=== PATIENT | male | born 1955 | race Caucasian/White ===

== ENCOUNTER 2019-11-21 07:02 | Inpatient (IN) | payer MEDICARE, OTHER ==
[2019-11-21] MEDS ORDERED: Diltiazem 50 MG/10 ML SDV IVPUSH ONE (07:31)
[2019-11-21] MEDS ORDERED: Furosemide 40 MG/4 ML VIAL IVPUSH ONE (07:31)
--- NOTE | 2019-11-21 07:35 | EDM.PDOC ---
ED HPI GENERAL MEDICAL PROBLEM - General Chief Complaint: Respiratory Problem Stated Complaint: [facility] Time Seen by Provider: 11/21/19 07:20 Source of Information: Reports: Patient, EMS, Family History Limitations: Reports: Respiratory Distress - History of Present Illness INITIAL COMMENTS - FREE TEXT/NARRATIVE: 64-year-old male presents to the ED per [facility]. Patient states that he has felt fluttering in his chest off and on since yesterday around noon. This caused shortness of breath but no dizziness lightheadedness or weakness in his extremities. No central chest pain. He states this seemed to go away last evening but awoke this morning shortness of breath and feeling of palpitations. No history of atrial fibrillation. Triage nurse has performed an ECG which shows atrial fibrillation with rapid ventricular response up to 150/min. Patient has a dry cough not able to expectorate anything. He has a history of diabetes and hypertension. He is morbidly obese. Apparently on echo cardiogram showed that he had a leaky valve according to his . Onset: Sudden Onset Date: 11/20/19 Duration: Day(s):, Getting Worse, Waxing/Waning Location: Reports: Chest (During in his chest.) Quality: Reports: Other (Shortness of breath.) Severity: Mild Improves with: Reports: None Worsens with: Reports: None Context: Reports: Other (Spontaneous onset). Denies: Activity, Exercise, Lifting, Sick Contact, Trauma Associated Symptoms: Reports: Cough, Malaise, Shortness of Breath. 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 (see below) (He has not taken his usual meds yet today which include includes metoprolol 50 mg extended release with which he takes 3 pills at once.) Sacral Pain Score (Numeric/FACES): 9 - Related Data Allergies Allergy/AdvReac Type Severity Reaction Status Date / Time sulfamethoxazole Allergy Hives Verified 11/21/19 07:30 [From ] trimethoprim [From ] Allergy Hives Verified 11/21/19 07:30 Home Meds: Home Meds Aspirin [Lo-Dose Aspirin EC] 81 mg PO DAILY 07/24/16 [History] Hydrochlorothiazide 25 mg PO DAILY 07/24/16 [History] Lisinopril 20 mg PO BID 07/24/16 [History] Metoprolol Succinate [Toprol XL 100mg] 150 mg PO DAILY 07/24/16 [History] Oxybutynin 5 mg PO DAILY PRN 11/21/19 [History] Pantoprazole [ProTONIX] 40 mg PO DAILY 11/21/19 [History] Potassium Chloride 30 meq PO DAILY 11/21/19 [History] amLODIPine Besylate [Amlodipine Besylate] 10 mg PO DAILY 11/21/19 [History] metFORMIN [Glucophage] 500 mg PO TID 11/21/19 [History] Past Medical History HEENT History: Reports: Epistaxis Cardiovascular History: Reports: Hypertension Musculoskeletal History: Reports: Back Pain, Chronic - Past Surgical History Male Surgical History: Reports: Other (See Below) (And 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 Denies: Fever, Chills, Weight Loss HEENT: Reports: No Symptoms Respiratory: Reports: Shortness of Breath, Cough (Nonproductive). Denies: Wheezing, Pleuritic Chest Pain Cardiovascular: Reports: Blood Pressure Problem, Palpitations. Denies: Chest Pain, Claudication, Edema, Lightheadedness, Orthopnea Endocrine: Reports: Fatigue, High Glucose, Polydypsia, Polyuria GI/Abdominal: Denies: Abdominal Pain, Anorexia, Black Stool, Bloody Stool, Constipation, Diarrhea, Decreased Appetite, Difficulty Swallowing, Distension, Flatus, Hematemesis, Hematochezia : Reports: Frequency, Other (Nocturia x2 or 3.) Musculoskeletal: Reports: Back Pain, Other (Occultly walking.) Skin: Reports: Other (Chronic redness erythema both lower extremities due to venous stasis and chronic edema lower extremities) Neurological: Reports: Difficulty Walking. Denies: Confusion, Dizziness, Headache, Numbness, Paresthesia, Pre-Existing Deficit, Seizure, Syncope, Tingling, Tremors, Trouble Speaking (Likely), Weakness Psychiatric: Reports: No Symptoms Hematologic/Lymphatic: Reports: No Symptoms Immunologic: Reports: No Symptoms ED EXAM, GENERAL - Physical Exam Exam: See Below Exam Limited By: No Limitations General Appearance: Alert, WD/WN, Mild Distress, Other (Temperature is 37.2 pulse is 94 and sinus respiratory it is 32 O2 sats 88% on room air BP 163/80. Patient placed on oxygen at 4 L/min by nasal cannula to achieve O2 sats of 93%) Eye Exam: Bilateral Eye: Normal Inspection, PERRL Throat/Mouth: Other (Tongue is dry and coated.) Head: Atraumatic, Normocephalic Neck: Normal Inspection, Supple, Non-Tender, Full Range of Motion. No: Carotid Bruit, Lymphadenopathy (L), Lymphadenopathy (R), Thyromegaly Respiratory/Chest: No Accessory Muscle Use, Respiratory Distress (Marked tachypnea.), Rales (Left lower lobes.), Wheezing (Occasional expiratory wheeze.). No: Lungs Clear, Normal Breath Sounds Cardiovascular: Regular Rate, Rhythm, No Gallop, No Murmur, No Rub, Other (Ball neck does not allow me to appreciate JVD.). 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 Extensive scarring in the groin.) Back Exam: Normal Inspection, Full Range of Motion. No: CVA Tenderness (L), CVA Tenderness (R) Extremities: Pedal Edema (3+ pitting edema both lower extremities), Other (. Stasis dermatitis both lower extremities. Some scabbing appreciated over the left lower anterior baires. Bilateral mild erythema both lower anterior shins. Not warm to palpation.) Neurological: Alert, Oriented, CN II-XII Intact, Normal Cognition Psychiatric: Normal Affect, Normal Mood Skin Exam: Warm, Dry, Intact, Normal Color, Erythema (No erythema both lower anterior shins.). No: Increased Warmth EKG INTERPRETATION EKG Date: 11/21/19 Time: 07:16 Rhythm: A-Fib (With rate 70 to 150/min.) Rate (Beats/Min): 95 [place]: Normal P-Wave: Absent QRS: Other (They have V2 suggestive of possible old anteroseptal myocardial infarction.) ST-T: Other (During baseline in the precordial leads. Suggests mild ST segment elevation in leads II 3 and possibly in aVF. This could be due to early repolarization pattern due to rate.) QT: Normal EKG Interpretation Comments: Abnormal ECG Course - Vital Signs Last Recorded V/S: Last Vital Signs Temp 36.7 C 11/21/19 17:00 Pulse 74 11/21/19 10:10 Resp 16 11/21/19 18:00 BP 151/89 H 11/21/19 18:00 Pulse Ox 94 L 11/21/19 18:00 - Orders/Labs/Meds Orders: Medication Orders Acetaminophen (Tylenol) 650 mg PO Q4H PRN PRN Reason: Pain (Mild 1-3)/fever Hydrocodone Bitart/Acetaminophen (Beatty 325-5 Mg) 2 tab PO Q4H PRN PRN Reason: Pain (moderate 4-6) Last Admin: 11/21/19 12:05 Dose: 2 tab Documented by: TUYET Apixaban (Eliquis) 5 mg PO BID [facility] Last Admin: 11/21/19 12:05 Dose: 5 mg Documented by: TUYET Digoxin (Lanoxin) 250 mcg PO ONETIME ONE Stop: 11/21/19 21:01 Hydralazine HCl (Apresoline) 25 mg PO Q8H [facility] Last Admin: 11/21/19 14:28 Dose: 25 mg Documented by: TUYET Furosemide 100 mg/ Sodium (Chloride) 100 mls @ 5 mls/hr IV TITRATE [facility]; Protocol Last Admin: 11/21/19 12:05 Dose: 5 mg/hr, 5 mls/hr Documented by: TUYET Insulin Human Lispro (Humalog) 0 unit SUBCUT QIDACANDBED [facility]; Protocol Last Admin: 11/21/19 18:07 Dose: Not Given Documented by: TUYET Isosorbide Dinitrate (Isordil) 20 mg PO Q8H [facility] Last Admin: 11/21/19 14:29 Dose: 20 mg Documented by: TUYET Pantoprazole Sodium (Protonix) 40 mg PO DAILY [facility] Spironolactone (Aldactone) 25 mg PO DAILY [facility] Last Admin: 11/21/19 14:29 Dose: 25 mg Documented by: TUYET Labs: Laboratory Tests 11/21/19 11/21/19 11/21/19 Range/Units 07:15 07:15 07:15 WBC 14.31 H (4.23-9.07) K/mm3 RBC 4.48 L (4.63-6.08) M/mm3 Hgb 12.9 L D (13.7-17.5) gm/dl Hct 38.8 L (40.1-51.0) % MCV 86.6 D (79.0-92.2) fl MCH 28.8 (25.7-32.2) pg MCHC 33.2 (32.2-35.5) g/dl RDW Std Deviation 50.7 H (35.1-43.9) fL Plt Count 292 (163-337) K/mm3 MPV 10.6 (9.4-12.3) fl Neut % (Auto) 82.0 H (34.0-67.9) % Lymph % (Auto) 8.1 L (21.8-53.1) % [place] % (Auto) 8.5 (5.3-12.2) % Eos % (Auto) 0.8 (0.8-7.0) Baso % (Auto) 0.3 (0.1-1.2) % Neut # (Auto) 11.75 H (1.78-5.38) K/mm3 Lymph # (Auto) 1.16 L (1.32-3.57) K/mm3 [place] # (Auto) 1.21 H (0.30-0.82) K/mm3 Eos # (Auto) 0.11 (0.04-0.54) K/mm3 Baso # (Auto) 0.04 (0.01-0.08) K/mm3 Manual Slide Review Abnormal smear PT 11.6 (9.7-12.0) SECONDS INR 1.07 APTT 31 (22-31) SECONDS Sodium 139 D (136-145) mEq/L Potassium 4.6 (3.5-5.1) mEq/L Chloride 103 D (98-107) mEq/L Carbon Dioxide 25 (21-32) mEq/L Anion Gap 15.6 H (5-15) BUN 43 H (7-18) mg/dL Creatinine 1.8 H (0.7-1.3) mg/dL Est Cr Clr Drug Dosing 48.84 mL/min Estimated GFR (MDRD) 38 (>60) mL/min BUN/Creatinine Ratio 23.9 H (14-18) Glucose 160 H (80-115) mg/dL Hemoglobin A1c (4.50-6.20) % Calcium 9.1 (8.5-10.1) mg/dL Magnesium 1.6 L (1.8-2.4) mg/dl Total Bilirubin 1.5 H (0.2-1.0) mg/dL AST 14 L (15-37) U/L ALT 21 (16-63) U/L Alkaline Phosphatase 65 (46-116) U/L CK-MB (CK-2) 1.7 (0-3.6) ng/ml Troponin I < 0.017 (0.00-0.056) ng/mL C-Reactive Protein 15.8 H* (<1.0) mg/dL NT-Pro-B Natriuret Pep (0-125) pg/mL Total Protein 7.9 (6.4-8.2) g/dl Albumin 3.7 (3.4-5.0) g/dl Globulin 4.2 gm/dL Albumin/Globulin Ratio 0.9 L (1-2) 11/21/19 11/21/19 Range/Units 07:15 07:15 WBC (4.23-9.07) K/mm3 RBC (4.63-6.08) M/mm3 Hgb (13.7-17.5) gm/dl Hct (40.1-51.0) % MCV (79.0-92.2) fl MCH (25.7-32.2) pg MCHC (32.2-35.5) g/dl RDW Std Deviation (35.1-43.9) fL Plt Count (163-337) K/mm3 MPV (9.4-12.3) fl Neut % (Auto) (34.0-67.9) % Lymph % (Auto) (21.8-53.1) % [place] % (Auto) (5.3-12.2) % Eos % (Auto) (0.8-7.0) Baso % (Auto) (0.1-1.2) % Neut # (Auto) (1.78-5.38) K/mm3 Lymph # (Auto) (1.32-3.57) K/mm3 [place] # (Auto) (0.30-0.82) K/mm3 Eos # (Auto) (0.04-0.54) K/mm3 Baso # (Auto) (0.01-0.08) K/mm3 Manual Slide Review PT (9.7-12.0) SECONDS INR APTT (22-31) SECONDS Sodium (136-145) mEq/L Potassium (3.5-5.1) mEq/L Chloride (98-107) mEq/L Carbon Dioxide (21-32) mEq/L Anion Gap (5-15) BUN (7-18) mg/dL Creatinine (0.7-1.3) mg/dL Est Cr Clr Drug Dosing mL/min Estimated GFR (MDRD) (>60) mL/min BUN/Creatinine Ratio (14-18) Glucose (80-115) mg/dL Hemoglobin A1c 6.40 H (4.50-6.20) % Calcium (8.5-10.1) mg/dL Magnesium (1.8-2.4) mg/dl Total Bilirubin (0.2-1.0) mg/dL AST (15-37) U/L ALT (16-63) U/L Alkaline Phosphatase (46-116) U/L CK-MB (CK-2) (0-3.6) ng/ml Troponin I (0.00-0.056) ng/mL C-Reactive Protein (<1.0) mg/dL NT-Pro-B Natriuret Pep 6123 H (0-125) pg/mL Total Protein (6.4-8.2) g/dl Albumin (3.4-5.0) g/dl Globulin gm/dL Albumin/Globulin Ratio (1-2) Meds: Medications Generic Name Dose Route Start Last Admin Trade Name Josiahq PRN Reason Stop Dose Admin Acetaminophen 650 mg 11/21/19 11:07 Tylenol PO Q4H PRN Pain (Mild 1-3)/fever Hydrocodone Bitart/Acetaminophen 2 tab 11/21/19 11:07 11/21/19 12:05 Beatty 325-5 Mg PO 2 tab Q4H PRN Administration Pain (moderate 4-6) Apixaban 5 mg 11/21/19 11:30 11/21/19 12:05 Eliquis PO 5 mg BID SERVANDO Administration Digoxin 250 mcg 11/21/19 21:00 Lanoxin PO 11/21/19 21:01 ONETIME ONE Hydralazine HCl 25 mg 11/21/19 13:15 11/21/19 14:28 Apresoline PO 25 mg Q8H SERVANDO Administration Furosemide 100 mg/ Sodium 100 mls @ 5 mls/hr 11/21/19 11:30 11/21/19 12:05 Chloride IV 5 mg/hr TITRATE SERVANDO 5 mls/hr Administration Protocol 5 MG/HR Insulin Human Lispro 0 unit 11/21/19 17:00 11/21/19 18:07 Humalog SUBCUT Not Given QIDACANDBED SERVANDO Protocol Isosorbide Dinitrate 20 mg 11/21/19 13:15 11/21/19 14:29 Isordil PO 20 mg Q8H SERVANDO Administration Pantoprazole Sodium 40 mg 11/22/19 09:00 Protonix PO DAILY SERVANDO Spironolactone 25 mg 11/21/19 13:00 11/21/19 14:29 Aldactone PO 25 mg DAILY SERVANDO Administration Discontinued Medications Generic Name Dose Route Start Last Admin Trade Name Josiahq PRN Reason Stop Dose Admin Diltiazem HCl 10 mg 11/21/19 07:31 11/21/19 07:54 Cardizem IVPUSH 11/21/19 07:32 10 mg ONETIME ONE Administration Furosemide 40 mg 11/21/19 07:31 11/21/19 07:52 Lasix IVPUSH 11/21/19 07:32 40 mg NOW ONE Administration Diltiazem HCl 100 mg/ Sodium 100 mls @ 10 mls/hr 11/21/19 07:45 11/21/19 17:01 Chloride IV 0 mg/hr TITRATE SERVANDO 0 mls/hr Titration Protocol 10 MG/HR Magnesium Sulfate 4 gm/ Premix 50 mls @ 12.5 mls/hr 11/21/19 12:05 11/21/19 12:43 IV 11/21/19 16:04 12.5 mls/hr ONETIME ONE Administration Lisinopril 20 mg 11/21/19 21:00 Prinivil PO BID SERVANDO Oxybutynin Chloride 5 mg 11/21/19 11:10 Oxybutynin PO DAILY PRN Dysuria Potassium Chloride 30 meq 11/22/19 09:00 Klor-Con 10 PO DAILY [facility] - Radiology Interpretation Free Text/Narrative:: 64-year-old male presents to the ED shortness of breath gradually worsening since yesterday. He is aware of palpitations in his chest. ECG shows atrial fibrillation which apparently is new onset for this patient with rapid ventricular rate up to 150/min. Clinically he is tachypneic and hypoxic with O2 sats of 88% on room air. Requiring 4 L of oxygen per nasal cannula at this nettie e. Exam reveals crackles in both bases combined with congestive failure probably secondary to atrial fibrillation of unknown duration. Patient is on metoprolol 50 mg extended release which she takes 3 tablets at once once daily. This is for hypertension. To the patient's knowledge and his 's knowledge he is never had atrial fibrillation before. He is morbidly obese ,known to be diabetic. Plan saline lock. Cardizem 10 mg IV bolus then started on a Cardizem drip at 10 mg/h. Lasix 40 mg IV. Routine labs including cardiac markers glycosylated protein and 2 view chest x-ray. - Re-Assessments/Exams Free Text/Narrative Re-Assessment/Exam: 11/21/19 08:38 patient remains in atrial fibrillation primarily in the 80s. BP is 149/86. O2 sats 94% on 4 L. View chest x-ray reveals cardiomegaly diffuse vascular congestion with fluid in the azygous fissure. 11/21/19 08:41 White count is elevated at 14.31 with 82% neutrophils on the auto differential. Manual slide review is pending. Hemoglobin is 12.9 with hematocrit of 38.8. Platelet count 292,000. Sodium 139 with a potassium of 4.6. Chloride 103 with bicarb of 25. Anion gap is 15.6 mildly elevated. BUN is elevated at 43 with a creatinine of 1.8. GFR is 38 stage III renal insufficiency. Glucose is 160 known diabetic. Hemoglobin A1c is 6.4. Calcium is 9.1 with magnesium of 1.6 slightly low. Bilirubin elevated at 1.5. AST is 14 with an ALT of 21. Alkaline phosphatase of 65. CK-MB fraction is 1.7 troponin I is less than 0.017. C-reactive protein is 15.8. BNP is 6123 .Total protein 7.9 albumin 3.7. Plan: the patient will be admitted to the intensive care unit.. He has significant congestive heart failure precipitated by atrial fibrillation of new onset but we are not exactly sure when it started. He requires oxygen at 4 L/min at present due to congestive failure. Atrial fibrillation to be controlled at present with Cardizem drip at 10 mg/h. Case discussed with on-call hospitalist Dr. Carroll. 11/21/19 08:49 I have spoken with Dr. Carroll and the patient will be admitted to the ICU. Dr. Carroll requested a lactic acid and I agree as he has an elevated white count and an elevated CRP suggesting an underlying bacterial infection. He is afebrile at present. Departure - Departure Time of Disposition: 10:00 Disposition: Admitted As Inpatient 67 Condition: Fair Clinical Impression: Atrial fibrillation with rapid ventricular response Congestive heart failure Qualifiers: Heart failure type: unspecified Heart failure chronicity: acute on chronic Qualified Code(s): I50.9 - Heart failure, unspecified - Discharge Information *PRESCRIPTION DRUG MONITORING PROGRAM REVIEWED*: Not Applicable *COPY OF PRESCRIPTION DRUG MONITORING REPORT IN PATIENT HEATHER: Not Applicable Sepsis Event Note (ED) - Evaluation Sepsis Screening Result: No Definite Risk
[2019-11-21] MEDS ORDERED: Diltiazem 100 MG in Sodium Chloride 0.9% 100 ML IV SCH (07:45)
[2019-11-21 08:30] LABS: HEMOGLOBIN A1C 6.4 % (4.50-6.20)
--- NOTE | 2019-11-21 08:37 | CR ---
Chest: 2 views of the chest were obtained. Comparison: Prior chest x-ray of 07/24/16. Heart is enlarged. Pulmonary vessels are congested. No acute bony abnormality is seen. Impression: 1. Findings suspicious for mild CHF. Diagnostic code #3 Study was dictated in MDT
[2019-11-21] MEDS ORDERED: Acetaminophen 325 MG Tab PO PRN (11:07)
[2019-11-21] MEDS ORDERED: Oxybutynin 5 MG Tab PO PRN (11:10)
--- NOTE | 2019-11-21 11:17 | PCM.HP.2 ---
H&P History of Present Illness - General Date of Service: 11/21/19 Admit Problem/Dx: Admission Diagnosis/Problem Admission Diagnosis/Problem Atrial fibrillation with rapid ventricular response - History of Present Illness Initial Comments - Free Text/Narative: 64-year-old male with history of hypertension and type 2 diabetes presents to the emergency room with worsening shortness of breath. Patient states that he started developing shortness of breath yesterday morning and it worsened throughout the day. Last night he had orthopnea but denies PND. Lower extremity edema has been present for approximately 3 years but it was worse over the last 3 to 4 weeks. Denies any fever or chills. Denies any chest pain. Patient does state he has had some feeling of palpitations in his chest since yesterday., Or neurologic deficiencies. He is on lisinopril, metoprolol, hydrochlorothiazide, and Norvasc for his hypertension. Patient had an echocardiogram over a year ago which showed a leaky valve. In the emergency department initial blood pressure was elevated 163/80 and heart rate ranged from 80-150 and was irregular. EKG showed A. fib with a ventricular rate between 70-150. Some early repolarization in leads II, III, and aVF. Patient was given Cardizem 10 mg IV bolus and placed on a Cardizem drip. Patient was also given Lasix 40 mg IV push with good results. Heart rate stabilized in the 80s and he was transferred to the unit. He did require 4 L to get his oxygen saturations to 94%. On presentation they were 88%. Admitting labs showed an elevated white count of 14.31 with 11.75 neutrophils without bands, hemoglobin 12.9, platelet count 292, sodium 139, potassium 4.6, anion gap of 25.6, bicarb 25, BUN 43, creatinine 1.8, estimated GFR of 38, glucose 160. C-reactive protein of 15.8. Troponin less than 0.017. Mildly elevated total bilirubin of 1.5. proBNP was 6123. Hemoglobin A1c was 6.4. Sacral Pain Score (Numeric/FACES): 9 - Related Data Allergies/Adverse Reactions: Allergies Allergy/AdvReac Type Severity Reaction Status Date / Time sulfamethoxazole Allergy Hives Verified 11/21/19 07:30 [From ] trimethoprim [From ] Allergy Hives Verified 11/21/19 07:30 Home Medications: Home Meds Aspirin [Lo-Dose Aspirin EC] 81 mg PO DAILY 07/24/16 [History] Hydrochlorothiazide 25 mg PO DAILY 07/24/16 [History] Lisinopril 20 mg PO BID 07/24/16 [History] Metoprolol Succinate [Toprol XL 100mg] 150 mg PO DAILY 07/24/16 [History] Oxybutynin 5 mg PO DAILY PRN 11/21/19 [History] Pantoprazole [ProTONIX] 40 mg PO DAILY 11/21/19 [History] Potassium Chloride 30 meq PO DAILY 11/21/19 [History] amLODIPine Besylate [Amlodipine Besylate] 10 mg PO DAILY 11/21/19 [History] metFORMIN [Glucophage] 500 mg PO TID 11/21/19 [History] Past Medical History HEENT History: Reports: Epistaxis Other HEENT History: wears eyeglasses. 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 He still has chronic pain in his tailbone area.) Social & Family History - Tobacco Use Smoking Status *Q: Never Smoker Second Hand Smoke Exposure: No - Caffeine Use Caffeine Use: Reports: Coffee - Recreational Drug Use Recreational Drug Use: No - Living Situation & Occupation Living situation: Reports: Occupation: Disabled H&P Review of Systems - Review of Systems: Review Of Systems: Comprehensive ROS is negative, except as noted in HPI. Exam - Exam Exam: See Below - Vital Signs Vital Signs: Last Vital Signs Temp 98 F 11/21/19 10:29 Pulse 74 11/21/19 10:10 Resp 16 11/21/19 10:29 BP 152/87 H 11/21/19 10:29 Pulse Ox 94 L 11/21/19 11:07 Weight: 159.755 kg - Exam Quality Assessment: Supplemental Oxygen General: Alert, Oriented, 4 HEENT: Conjunctiva Clear, Hearing Intact, Mucosa Moist & [place] Neck: Supple, Trachea Midline, 2 Lungs: Normal Respiratory Effort, Crackles (Bilateral basis) Cardiovascular: Irregular Rhythm (And rate) GI/Abdominal Exam: Normal Bowel Sounds, Soft, Non-Tender, No Organomegaly, No Distention, No Abnormal Bruit Back Exam: Normal Inspection Extremities: Normal Inspection, Normal Range of Motion, Non-Tender, No Pedal Edema, Normal Capillary Refill Peripheral Pulses: 1+: Posterior Tibial (L), Posterior Tibial (R), Dorsalis Pedis (L), Dorsalis Pedis (R) Skin: Warm, Dry, Intact Neuro Extensive - Mental Status: Alert, Oriented x3, Normal Mood/Affect, Normal Cognition, Memory Intact Neuro Extensive - Motor, Sensory, Reflexes: CN II-XII Intact Psychiatric: Alert, Normal Affect, Normal Mood - Patient Data Lab Results Last 24 hrs: Laboratory Results - last 24 hr 11/21/19 11/21/19 11/21/19 Range/Units 07:15 07:15 07:15 WBC 14.31 H (4.23-9.07) K/mm3 RBC 4.48 L (4.63-6.08) M/mm3 Hgb 12.9 L D (13.7-17.5) gm/dl Hct 38.8 L (40.1-51.0) % MCV 86.6 D (79.0-92.2) fl MCH 28.8 (25.7-32.2) pg MCHC 33.2 (32.2-35.5) g/dl RDW Std Deviation 50.7 H (35.1-43.9) fL Plt Count 292 (163-337) K/mm3 MPV 10.6 (9.4-12.3) fl Neut % (Auto) 82.0 H (34.0-67.9) % Lymph % (Auto) 8.1 L (21.8-53.1) % [place] % (Auto) 8.5 (5.3-12.2) % Eos % (Auto) 0.8 (0.8-7.0) Baso % (Auto) 0.3 (0.1-1.2) % Neut # (Auto) 11.75 H (1.78-5.38) K/mm3 Lymph # (Auto) 1.16 L (1.32-3.57) K/mm3 [place] # (Auto) 1.21 H (0.30-0.82) K/mm3 Eos # (Auto) 0.11 (0.04-0.54) K/mm3 Baso # (Auto) 0.04 (0.01-0.08) K/mm3 Manual Slide Review Abnormal smear PT 11.6 (9.7-12.0) SECONDS INR 1.07 APTT 31 (22-31) SECONDS Sodium 139 D (136-145) mEq/L Potassium 4.6 (3.5-5.1) mEq/L Chloride 103 D (98-107) mEq/L Carbon Dioxide 25 (21-32) mEq/L Anion Gap 15.6 H (5-15) BUN 43 H (7-18) mg/dL Creatinine 1.8 H (0.7-1.3) mg/dL Est Cr Clr Drug Dosing 48.84 mL/min Estimated GFR (MDRD) 38 (>60) mL/min BUN/Creatinine Ratio 23.9 H (14-18) Glucose 160 H (80-115) mg/dL Hemoglobin A1c (4.50-6.20) % Lactic Acid (0.4-2.0) mmol/L Calcium 9.1 (8.5-10.1) mg/dL Magnesium 1.6 L (1.8-2.4) mg/dl Total Bilirubin 1.5 H (0.2-1.0) mg/dL AST 14 L (15-37) U/L ALT 21 (16-63) U/L Alkaline Phosphatase 65 (46-116) U/L CK-MB (CK-2) 1.7 (0-3.6) ng/ml Troponin I < 0.017 (0.00-0.056) ng/mL C-Reactive Protein 15.8 H* (<1.0) mg/dL NT-Pro-B Natriuret Pep (0-125) pg/mL Total Protein 7.9 (6.4-8.2) g/dl Albumin 3.7 (3.4-5.0) g/dl Globulin 4.2 gm/dL Albumin/Globulin Ratio 0.9 L (1-2) Urine Color (Yellow) Urine Appearance (Clear) Urine pH (5.0-8.0) Ur Specific [place] (1.005-1.030) Urine Protein (Negative) Urine Glucose (UA) (Negative) Urine Ketones (Negative) Urine Occult Blood (Negative) Urine Nitrite (Negative) Urine Bilirubin (Negative) Urine Urobilinogen (0.2-1.0) Ur Leukocyte Esterase (Negative) Urine RBC (0-5) /hpf Urine WBC (0-5) /hpf Ur Epithelial Cells (0-5) /hpf Urine Bacteria (FEW) /hpf Urine Mucus (FEW) /hpf 11/21/19 11/21/19 11/21/19 Range/Units 07:15 07:15 09:10 WBC (4.23-9.07) K/mm3 RBC (4.63-6.08) M/mm3 Hgb (13.7-17.5) gm/dl Hct (40.1-51.0) % MCV (79.0-92.2) fl MCH (25.7-32.2) pg MCHC (32.2-35.5) g/dl RDW Std Deviation (35.1-43.9) fL Plt Count (163-337) K/mm3 MPV (9.4-12.3) fl Neut % (Auto) (34.0-67.9) % Lymph % (Auto) (21.8-53.1) % [place] % (Auto) (5.3-12.2) % Eos % (Auto) (0.8-7.0) Baso % (Auto) (0.1-1.2) % Neut # (Auto) (1.78-5.38) K/mm3 Lymph # (Auto) (1.32-3.57) K/mm3 [place] # (Auto) (0.30-0.82) K/mm3 Eos # (Auto) (0.04-0.54) K/mm3 Baso # (Auto) (0.01-0.08) K/mm3 Manual Slide Review PT (9.7-12.0) SECONDS INR APTT (22-31) SECONDS Sodium (136-145) mEq/L Potassium (3.5-5.1) mEq/L Chloride (98-107) mEq/L Carbon Dioxide (21-32) mEq/L Anion Gap (5-15) BUN (7-18) mg/dL Creatinine (0.7-1.3) mg/dL Est Cr Clr Drug Dosing mL/min Estimated GFR (MDRD) (>60) mL/min BUN/Creatinine Ratio (14-18) Glucose (80-115) mg/dL Hemoglobin A1c 6.40 H (4.50-6.20) % Lactic Acid (0.4-2.0) mmol/L Calcium (8.5-10.1) mg/dL Magnesium (1.8-2.4) mg/dl Total Bilirubin (0.2-1.0) mg/dL AST (15-37) U/L ALT (16-63) U/L Alkaline Phosphatase (46-116) U/L CK-MB (CK-2) (0-3.6) ng/ml Troponin I (0.00-0.056) ng/mL C-Reactive Protein (<1.0) mg/dL NT-Pro-B Natriuret Pep 6123 H (0-125) pg/mL Total Protein (6.4-8.2) g/dl Albumin (3.4-5.0) g/dl Globulin gm/dL Albumin/Globulin Ratio (1-2) Urine Color Yellow (Yellow) Urine Appearance Clear (Clear) Urine pH 5.5 (5.0-8.0) Ur Specific [place] 1.020 (1.005-1.030) Urine Protein 2+ H (Negative) Urine Glucose (UA) Negative (Negative) Urine Ketones Negative (Negative) Urine Occult Blood Trace-lysed H (Negative) Urine Nitrite Negative (Negative) Urine Bilirubin Negative (Negative) Urine Urobilinogen 0.2 (0.2-1.0) Ur Leukocyte Esterase Negative (Negative) Urine RBC Not seen (0-5) /hpf Urine WBC 0-5 (0-5) /hpf Ur Epithelial Cells Not seen (0-5) /hpf Urine Bacteria Rare (FEW) /hpf Urine Mucus Not seen (FEW) /hpf 11/20/20 Range/Units 09:14 WBC (4.23-9.07) K/mm3 RBC (4.63-6.08) M/mm3 Hgb (13.7-17.5) gm/dl Hct (40.1-51.0) % MCV (79.0-92.2) fl MCH (25.7-32.2) pg MCHC (32.2-35.5) g/dl RDW Std Deviation (35.1-43.9) fL Plt Count (163-337) K/mm3 MPV (9.4-12.3) fl Neut % (Auto) (34.0-67.9) % Lymph % (Auto) (21.8-53.1) % [place] % (Auto) (5.3-12.2) % Eos % (Auto) (0.8-7.0) Baso % (Auto) (0.1-1.2) % Neut # (Auto) (1.78-5.38) K/mm3 Lymph # (Auto) (1.32-3.57) K/mm3 [place] # (Auto) (0.30-0.82) K/mm3 Eos # (Auto) (0.04-0.54) K/mm3 Baso # (Auto) (0.01-0.08) K/mm3 Manual Slide Review PT (9.7-12.0) SECONDS INR APTT (22-31) SECONDS Sodium (136-145) mEq/L Potassium (3.5-5.1) mEq/L Chloride (98-107) mEq/L Carbon Dioxide (21-32) mEq/L Anion Gap (5-15) BUN (7-18) mg/dL Creatinine (0.7-1.3) mg/dL Est Cr Clr Drug Dosing mL/min Estimated GFR (MDRD) (>60) mL/min BUN/Creatinine Ratio (14-18) Glucose (80-115) mg/dL Hemoglobin A1c (4.50-6.20) % Lactic Acid 2.2 H* (0.4-2.0) mmol/L Calcium (8.5-10.1) mg/dL Magnesium (1.8-2.4) mg/dl Total Bilirubin (0.2-1.0) mg/dL AST (15-37) U/L ALT (16-63) U/L Alkaline Phosphatase (46-116) U/L CK-MB (CK-2) (0-3.6) ng/ml Troponin I (0.00-0.056) ng/mL C-Reactive Protein (<1.0) mg/dL NT-Pro-B Natriuret Pep (0-125) pg/mL Total Protein (6.4-8.2) g/dl Albumin (3.4-5.0) g/dl Globulin gm/dL Albumin/Globulin Ratio (1-2) Urine Color (Yellow) Urine Appearance (Clear) Urine pH (5.0-8.0) Ur Specific [place] (1.005-1.030) Urine Protein (Negative) Urine Glucose (UA) (Negative) Urine Ketones (Negative) Urine Occult Blood (Negative) Urine Nitrite (Negative) Urine Bilirubin (Negative) Urine Urobilinogen (0.2-1.0) Ur Leukocyte Esterase (Negative) Urine RBC (0-5) /hpf Urine WBC (0-5) /hpf Ur Epithelial Cells (0-5) /hpf Urine Bacteria (FEW) /hpf Urine Mucus (FEW) /hpf Result Diagrams: 11/21/19 07:15 11/21/19 07:15 EKG INTERPRETATION EKG Date: 11/21/19 Rhythm: A-Fib Rate (Beats/Min): 95 P-Wave: Absent QRS: Normal ST-T: Other (Early repolarization in the inferior leads) QT: Normal Sepsis Event Note - Evaluation Sepsis Screening Result: Severe Sepsis Risk - Focused Exam Vital Signs: Vital Signs Temp Pulse Resp BP Pulse Ox Pulse Ox 11/21/19 11:07 94 L 11/21/19 10:29 98 F 16 152/87 H 95 11/21/19 10:10 98.6 F 74 24 H 130/80 92 L 11/21/19 07:02 98.9 F 94 32 H 163/80 H 88 L Date Exam was Performed: 11/21/19 Time Exam was Performed: 19:35 Problem List Initiated/Reviewed/Updated: Yes Orders Last 24hrs: Active Orders 24 hr Category Date Time Status Admission Status [Patient Status] [ADT] Routine ADT 11/21/19 08:50 Active Blood Glucose Check, Bedside [RC] QIDACANDBED Care 11/21/19 11:13 Ordered Intake and Output Strict [RC] ASDIRECTED Care 11/21/19 11:10 Ordered Oxygen Therapy [RC] PRN Care 11/21/19 11:07 Ordered Up With Assistance [RC] ASDIRECTED Care 11/21/19 11:07 Ordered VTE/DVT Education [RC] PER UNIT ROUTINE Care 11/21/19 11:07 Ordered Vital Signs [RC] ASDIRECTED Care 11/21/19 11:07 Ordered Heart Healthy Diet [DIET] Diet 11/21/19 Lunch Ordered Echo Comp wo Cont [US] Routine Exams 11/21/19 Ordered Acetaminophen [Tylenol] Med 11/21/19 11:07 Ordered 650 mg PO Q4H PRN Acetaminophen/HYDROcodone [[place] 325-5 MG] Med 11/21/19 11:07 Ordered 2 tab PO Q4H PRN Apixaban [Eliquis] Med 11/21/19 11:15 Ordered 5 mg PO BID Diltiazem [Cardizem] 100 mg Med 11/21/19 07:45 Active Sodium Chloride 0.9% [Normal Saline] 100 ml IV TITRATE Insulin Lispro [HumaLOG] Med 11/21/19 17:00 Ordered See Protocol SUBCUT QIDACANDBED Oxybutynin Med 11/21/19 11:10 Ordered 5 mg PO DAILY PRN Pantoprazole [ProTONIX] Med 11/22/19 09:00 Ordered 40 mg PO DAILY Potassium Chloride [Klor-Con 10] Med 11/22/19 09:00 Ordered 30 meq PO DAILY lisinopriL [Prinivil] Med 11/21/19 21:00 Ordered 20 mg PO BID Code Status [Resuscitation Status] Routine Resus Stat 11/21/19 10:37 Ordered Medication Orders Acetaminophen (Tylenol) 650 mg PO Q4H PRN PRN Reason: Pain (Mild 1-3)/fever Hydrocodone Bitart/Acetaminophen ([place] 325-5 Mg) 2 tab PO Q4H PRN PRN Reason: Pain (moderate 4-6) Apixaban (Eliquis) 5 mg PO BID SERVANDO Diltiazem HCl 100 mg/ Sodium (Chloride) 100 mls @ 10 mls/hr IV TITRATE SERVANDO; Protocol Last Admin: 11/21/19 07:58 Dose: 10 mg/hr, 10 mls/hr Documented by: JOSE Insulin Human Lispro (Humalog) 0 unit SUBCUT QIDACANDBED SERVANDO; Protocol Lisinopril (Prinivil) 20 mg PO BID [facility] Oxybutynin Chloride (Oxybutynin) 5 mg PO DAILY PRN PRN Reason: Dysuria Pantoprazole Sodium (Protonix) 40 mg PO DAILY [facility] Potassium Chloride (Klor-Con 10) 30 meq PO DAILY [facility] Assessment/Plan Comment:: New onset atrial fibrillation * Shortness of breath starting yesterday with palpitation worsening today. * Found to be in atrial fibrillation in the emergency department * No associated chest pain * Home medications include metoprolol XL 150 mg in the morning. Patient did take his metoprolol this morning. * Started on Cardizem drip with good results in the emergency department. * Patient does give history of worsening lower extremity edema over the last 3 weeks since stopping some a diabetic medication that was making him feel ill. * Patient has been in atrial fibrillation for unknown time but at least 24 hours and possibly up to 3 to 4 weeks or longer. Plan * Admit to ICU * Initially continue on Cardizem drip until ultrasound and if it appears he has some left ventricular dysfunction will switch him to digoxin. * Start Eliquis 5 mg twice daily for stroke prophylaxis. * Echocardiogram New onset congestive heart failure due to hypertension and atrial fib * Patient has a 3-year history of lower extremity edema, but it improved significantly while taking a new diabetic medication. Unfortunately it made him ill and he stopped it approximately 3 to 4 weeks ago. At that time he started developing worsening lower extremity edema. * Patient is already on metoprolol * BNP 6123 * Chest x-ray consistent with mild CHF * Given Lasix 40 mg IV in the emergency department Plan * Start Lasix drip * BiPAP * Start spironolactone 25 mg daily * Hold lisinopril because of acute kidney injury * Start hydralazine and isosorbide dinitrate * Echocardiogram * Strict I's and O's and daily weights * 1800 mL fluid restriction Type 2 diabetes Morbid obesity * On metformin at home * Hemoglobin A1c of 6.4 Plan * Fingerstick blood sugars before meals and nightly * Diabetic diet * Sliding scale insulin * Hold metformin VTE prophylaxis with Eliquis CODE STATUS: Full code Disposition: Admit to ICU for diuresis and rate control. - Mortality Measure Prognosis:: Good
[2019-11-21] MEDS: Furosemide 100 MG in Sodium Chloride 0.9% 90 ML IV SCH (12:05)
[2019-11-21] MEDS ORDERED: Magnesium Sulfate/Water 4 GM in Premix Bag 1 BAG IV ONE (12:05)
[2019-11-21] MEDS: Apixaban 5 MG Tab PO SCH ×2 (12:05→20:16)
[2019-11-21] MEDS: Acetaminophen/HYDROcodone 325-5 MG Tab PO PRN ×2 (12:05→20:14)
[2019-11-21] MEDS: hydrALAZINE 25 MG Tab PO SCH ×2 (14:28→20:15)
[2019-11-21] MEDS: Spironolactone 25 MG Tab PO SCH (14:29)
[2019-11-21] MEDS: Isosorbide Dinitrate 20 MG Tab PO SCH ×2 (14:29→20:16)
[2019-11-21] MEDS: Insulin Lispro 100 Units/ML 3 ML Vial SUBCUT SCH ×2 (18:07→21:38)
[2019-11-21] MEDS ORDERED: Digoxin 250 MCG Tab PO ONE (21:00)
[2019-11-21] MEDS ORDERED: Lisinopril 20 MG Tab PO SCH (21:00)
[2019-11-21] MEDS: Diltiazem IR 60 MG Tab PO SCH (21:25)
[2019-11-22] MEDS: Acetaminophen/HYDROcodone 325-5 MG Tab PO PRN ×5 (00:15→20:12)
[2019-11-22] MEDS ORDERED: Digoxin 250 MCG Tab PO SCH (03:00)
[2019-11-22] MEDS: Diltiazem IR 60 MG Tab PO SCH ×3 (03:04→15:14)
[2019-11-22] MEDS: hydrALAZINE 25 MG Tab PO SCH ×3 (06:00→20:16)
[2019-11-22] MEDS: Isosorbide Dinitrate 20 MG Tab PO SCH ×3 (06:00→20:16)
[2019-11-22] MEDS: Insulin Lispro 100 Units/ML 3 ML Vial SUBCUT SCH ×4 (06:11→22:02)
[2019-11-22] MEDS ORDERED: Potassium Chloride 20 MEQ Tab.ER PO ONE (08:10)
[2019-11-22] MEDS: Spironolactone 25 MG Tab PO SCH (08:56)
[2019-11-22] MEDS: Apixaban 5 MG Tab PO SCH ×2 (08:56→20:16)
[2019-11-22] MEDS: Pantoprazole 40 MG Tab.CR PO SCH (08:56)
[2019-11-22] MEDS ORDERED: Potassium Chloride 10 MEQ Tab.ER PO SCH (09:00)
[2019-11-22] MEDS ORDERED: Furosemide 40 MG/4 ML VIAL IVPUSH ONE (09:02)
[2019-11-22] MEDS: Furosemide 100 MG in Sodium Chloride 0.9% 90 ML IV SCH ×2 (09:14→17:01)
[2019-11-22] MEDS: Metoprolol Succinate 50 MG Tab.ER PO SCH (11:09)
[2019-11-22] MEDS ORDERED: Cyclobenzaprine 10 MG Tab PO PRN (20:06)
[2019-11-22] MEDS: Diltiazem 240 MG Cap.ER PO SCH (20:16)
[2019-11-22 20:19] VITALS: PULSE 78
[2019-11-23] MEDS: Acetaminophen/HYDROcodone 325-5 MG Tab PO PRN (02:36)
[2019-11-23] MEDS: hydrALAZINE 25 MG Tab PO SCH (05:23)
[2019-11-23] MEDS: Isosorbide Dinitrate 20 MG Tab PO SCH ×2 (05:24→13:26)
[2019-11-23] MEDS: Insulin Lispro 100 Units/ML 3 ML Vial SUBCUT SCH ×4 (06:01→21:03)
[2019-11-23] MEDS: Pantoprazole 40 MG Tab.CR PO SCH (08:20)
[2019-11-23] MEDS: Apixaban 5 MG Tab PO SCH ×2 (08:20→20:27)
[2019-11-23] MEDS: Metoprolol Succinate 50 MG Tab.ER PO SCH (08:21)
[2019-11-23] MEDS: Spironolactone 25 MG Tab PO SCH (08:21)
[2019-11-23] MEDS ORDERED: Furosemide 40 MG/4 ML VIAL IVPUSH SCH (09:00)
[2019-11-23] MEDS ORDERED: amLODIPine 10 MG Tab PO SCH (09:00)
[2019-11-23] MEDS: Lisinopril 20 MG Tab PO SCH (11:33)
--- NOTE | 2019-11-23 13:44 | PCM.PN ---
- General Info Date of Service: 11/23/19 Subjective Update: Slept OK Tolerating diet Ambulating to and from restroom with assistance Last BM 11/20 - Patient Data Vitals - Most Recent: Last Vital Signs Temp 97.6 F 11/23/19 08:00 Pulse 78 11/23/19 08:21 Resp 16 11/23/19 11:33 BP 145/87 H 11/23/19 13:26 Pulse Ox 96 11/23/19 11:33 Weight - Most Recent: 155.764 kg - Exam General: Alert, Oriented, Cooperative, No Acute Distress HEENT: Pupils Equal, Pupils Reactive, EOMI, Mucous Membr. Moist/[place] Neck: Supple, Trachea Midline Lungs: Clear to Auscultation, Normal Respiratory Effort. No: Crackles, Rales, Rhonchi, Rub, Stridor, Wheezing Cardiovascular: Regular Rate, Regular Rhythm. No: Murmurs, Gallops, Rubs GI/Abdominal Exam: Normal Bowel Sounds, Soft, Non-Tender, Distended. No: Guarding, Rigid, Rebound Back Exam: Normal Inspection Extremities: Normal Inspection, Pedal Edema Neurological: No New Focal Deficit Psy/Mental Status: Alert, Normal Affect, Normal Mood Sepsis Event Note - Evaluation Sepsis Screening Result: No Definite Risk - Problem List & Annotations (1) New onset atrial fibrillation SNOMED Code(s): 51374825 Code(s): I48.91 - UNSPECIFIED ATRIAL FIBRILLATION Status: Acute Current Visit: Yes (2) Atrial fibrillation with controlled ventricular rate SNOMED Code(s): 83850530 Code(s): I48.91 - UNSPECIFIED ATRIAL FIBRILLATION Status: Acute Current Visit: Yes (3) Atrial fibrillation with rapid ventricular response SNOMED Code(s): 367276091935509 Code(s): I48.91 - UNSPECIFIED ATRIAL FIBRILLATION Status: Acute Current Visit: Yes (4) Pulmonary hypertension, moderate to severe SNOMED Code(s): 93322930 Code(s): I27.20 - PULMONARY HYPERTENSION, UNSPECIFIED Status: Acute Current Visit: Yes (5) Obstructive sleep apnea SNOMED Code(s): 30668020 Code(s): G47.33 - OBSTRUCTIVE SLEEP APNEA (ADULT) (PEDIATRIC) Status: Acute Current Visit: Yes (6) Hypertension SNOMED Code(s): 87890184 Code(s): I10 - ESSENTIAL (PRIMARY) HYPERTENSION Status: Acute Current Visit: Yes (7) Diabetes mellitus SNOMED Code(s): 57529660 Code(s): E11.9 - TYPE 2 DIABETES MELLITUS WITHOUT COMPLICATIONS Status: Acute Current Visit: Yes (8) Chronic kidney disease (CKD), stage III (moderate) SNOMED Code(s): 095623100 Code(s): N18.3 - CHRONIC KIDNEY DISEASE, STAGE 3 (MODERATE) Status: Acute Current Visit: Yes (9) Morbid obesity with BMI of 40.0-44.9, adult SNOMED Code(s): 339353925, 20575435845374 Code(s): E66.01 - MORBID (SEVERE) OBESITY DUE TO EXCESS CALORIES; Z68.41 - BODY MASS INDEX (BMI) 40.0-44.9, ADULT Status: Acute Current Visit: Yes (10) Hypokalemia SNOMED Code(s): 90950459 Code(s): E87.6 - HYPOKALEMIA Status: Acute Current Visit: Yes - Problem List Review Problem List Initiated/Reviewed/Updated: Yes - Assessment Assessment:: 11/20- - Shortness of breath starting yesterday with palpitation worsening today - Found to be in atrial fibrillation in the emergency department - No associated chest pain - Home medications include metoprolol XL 150 mg in the morning. Patient did take his metoprolol this morning. - Started on Cardizem drip with good results in the emergency department. - Patient does give history of worsening lower extremity edema over the last 3 weeks since stopping some a diabetic medication that was making him feel ill. - Patient has a 3-year history of lower extremity edema, but it improved significantly while taking a new diabetic medication. Unfortunately it made him ill and he stopped it approximately 3 to 4 weeks ago. - At that time he started developing worsening lower extremity edema. - Lasix drip, BiPAP, echocardiogram, fluid restriction - Admission weight 353.2lbs 11/22/2019 - HR trend 58-73x'--> on Diltiazem and Metoprolol - Rather than risks bradycardia will discontinue metoprolol - This medication was on for blood pressure control --> will adjust lisinopril - Echocardiogram 11/20 - RVSP severely elevated at 61.2 - Probable bicuspid aortic valve - Moderate aortic stenosis - Elevated right atrial pressure signs - MAP trend 97-111 - Admission weight 353.2lb down to 343.4 today - Glucose trend 114-133 - HbA1c is "controlled" however this is not reliable due to patient having anemia but glucose values here are within expected range - K low yesterday, replaced, borderline normal today at 3.5 - UA on admission with protein 2+ on dipstick, will obtain spot protein and creatinine ration to evaluate level of proteinuria - Last GFR on 2016 documented at 52 --> in the 30s this admission, this does not appear to be an acute but rather a chronic issue, however acute injury complicating the issue cannot be ruled out - Normocytic anemia, last labs on 2017 with Hb within normal limits - Will ask patient about signs and symptoms of GI bleed - Anemia work up today - Plan Plan:: New onset atrial fibrillation with controlled ventricular rate - Continue diltiazem PO - Monitor rate Hypertension, poorly controlled - Discontinue metoprolol - Adjust lisinopril to daily dose - PRN hydralazine Diabetes mellitus, HbA1c 6.4% - Glucose checks before meals and 2 hours later - Diabetic diet Chronic kidney disease (CKD), stage III (moderate) Possible acute kidney injury - Monitor urine output - Renally adjusted medications - Urine protein and creatinine ratio - Restart home lisinopril Morbid obesity with BMI of 40.0-44.9, adult Obstructive sleep apnea vs Obesity hypoventilation syndrome - Outpatient sleep study Hypokalemia, resolved PROPHYLAXIS DVT- Eliquis GI- not indicated CODE STATUS: FULL CODE DISPOSITION: Patient will remain admitted with medical floor status on telemetry for BP medication adjustment with possible discharge in AM.
[2019-11-23] MEDS: Diltiazem 240 MG Cap.ER PO SCH (20:27)
--- NOTE | 2019-11-23 20:29 | PCM.PN ---
- General Info Date of Service: 11/22/19 Admission Dx/Problem (Free Text): Admission Diagnosis/Problem Admission Diagnosis/Problem Atrial fibrillation with rapid ventricular response Subjective Update: Patient with good appetite. No SOB, CP, or orthopnea. Decreased LE edema. Functional Status: Reports: Pain Controlled - Review of Systems General: Reports: No Symptoms HEENT: Reports: No Symptoms Pulmonary: Reports: No Symptoms Cardiovascular: Reports: Edema. Denies: Chest Pain Gastrointestinal: Reports: No Symptoms Skin: Reports: No Symptoms Psychiatric: Reports: No Symptoms - Patient Data Vitals - Most Recent: Last Vital Signs Temp 97.9 F 11/23/19 20:00 Pulse 78 11/23/19 08:21 Resp 20 11/23/19 20:00 BP 147/83 H 11/23/19 20:00 Pulse Ox 93 L 11/23/19 20:13 Weight - Most Recent: 155.764 kg I&O - Last 24 Hours: Intake & Output 11/23/19 11/23/19 11/23/19 06:59 14:59 22:59 Intake Total 167 240 540 Output Total 1050 1400 650 Balance -883 -1160 -110 Lab Results Last 24 Hours: Laboratory Results - last 24 hr 11/22/19 11/23/19 11/23/19 Range/Units 21:21 05:23 05:25 WBC 9.00 (4.23-9.07) K/mm3 RBC 4.01 L (4.63-6.08) M/mm3 Hgb 11.4 L (13.7-17.5) gm/dl Hct 34.5 L (40.1-51.0) % MCV 86.0 (79.0-92.2) fl MCH 28.4 (25.7-32.2) pg MCHC 33.0 (32.2-35.5) g/dl RDW Std Deviation 48.2 H (35.1-43.9) fL Plt Count 279 (163-337) K/mm3 MPV 10.3 (9.4-12.3) fl Neut % (Auto) 60.8 (34.0-67.9) % Lymph % (Auto) 21.8 (21.8-53.1) % [place] % (Auto) 13.3 H (5.3-12.2) % Eos % (Auto) 3.3 (0.8-7.0) Baso % (Auto) 0.6 (0.1-1.2) % Neut # (Auto) 5.47 H (1.78-5.38) K/mm3 Lymph # (Auto) 1.96 (1.32-3.57) K/mm3 [place] # (Auto) 1.20 H (0.30-0.82) K/mm3 Eos # (Auto) 0.30 (0.04-0.54) K/mm3 Baso # (Auto) 0.05 (0.01-0.08) K/mm3 Sodium (136-145) mEq/L Potassium (3.5-5.1) mEq/L Chloride (98-107) mEq/L Carbon Dioxide (21-32) mEq/L Anion Gap (5-15) BUN (7-18) mg/dL Creatinine (0.7-1.3) mg/dL Est Cr Clr Drug Dosing mL/min Estimated GFR (MDRD) (>60) mL/min BUN/Creatinine Ratio (14-18) Glucose (80-115) mg/dL POC Glucose 133 H 110 (80-115) mg/dL Calcium (8.5-10.1) mg/dL Phosphorus (2.6-4.7) mg/dL Magnesium (1.8-2.4) mg/dl Ur Random Creatinine (30.0-125.0) mg/dL U Random Total Protein (0.0-11.8) mg/dL 11/23/19 11/23/19 11/23/19 Range/Units 05:25 11:17 15:40 WBC (4.23-9.07) K/mm3 RBC (4.63-6.08) M/mm3 Hgb (13.7-17.5) gm/dl Hct (40.1-51.0) % MCV (79.0-92.2) fl MCH (25.7-32.2) pg MCHC (32.2-35.5) g/dl RDW Std Deviation (35.1-43.9) fL Plt Count (163-337) K/mm3 MPV (9.4-12.3) fl Neut % (Auto) (34.0-67.9) % Lymph % (Auto) (21.8-53.1) % [place] % (Auto) (5.3-12.2) % Eos % (Auto) (0.8-7.0) Baso % (Auto) (0.1-1.2) % Neut # (Auto) (1.78-5.38) K/mm3 Lymph # (Auto) (1.32-3.57) K/mm3 [place] # (Auto) (0.30-0.82) K/mm3 Eos # (Auto) (0.04-0.54) K/mm3 Baso # (Auto) (0.01-0.08) K/mm3 Sodium 141 (136-145) mEq/L Potassium 3.5 (3.5-5.1) mEq/L Chloride 103 (98-107) mEq/L Carbon Dioxide 26 (21-32) mEq/L Anion Gap 15.5 H (5-15) BUN 46 H (7-18) mg/dL Creatinine 1.9 H (0.7-1.3) mg/dL Est Cr Clr Drug Dosing 46.27 mL/min Estimated GFR (MDRD) 36 (>60) mL/min BUN/Creatinine Ratio 24.2 H (14-18) Glucose 118 H (80-115) mg/dL POC Glucose 119 H (80-115) mg/dL Calcium 8.9 (8.5-10.1) mg/dL Phosphorus 4.2 (2.6-4.7) mg/dL Magnesium 1.8 (1.8-2.4) mg/dl Ur Random Creatinine 55.4 (30.0-125.0) mg/dL U Random Total Protein 19.7 H (0.0-11.8) mg/dL 11/23/19 Range/Units 17:08 WBC (4.23-9.07) K/mm3 RBC (4.63-6.08) M/mm3 Hgb (13.7-17.5) gm/dl Hct (40.1-51.0) % MCV (79.0-92.2) fl MCH (25.7-32.2) pg MCHC (32.2-35.5) g/dl RDW Std Deviation (35.1-43.9) fL Plt Count (163-337) K/mm3 MPV (9.4-12.3) fl Neut % (Auto) (34.0-67.9) % Lymph % (Auto) (21.8-53.1) % [place] % (Auto) (5.3-12.2) % Eos % (Auto) (0.8-7.0) Baso % (Auto) (0.1-1.2) % Neut # (Auto) (1.78-5.38) K/mm3 Lymph # (Auto) (1.32-3.57) K/mm3 [place] # (Auto) (0.30-0.82) K/mm3 Eos # (Auto) (0.04-0.54) K/mm3 Baso # (Auto) (0.01-0.08) K/mm3 Sodium (136-145) mEq/L Potassium (3.5-5.1) mEq/L Chloride (98-107) mEq/L Carbon Dioxide (21-32) mEq/L Anion Gap (5-15) BUN (7-18) mg/dL Creatinine (0.7-1.3) mg/dL Est Cr Clr Drug Dosing mL/min Estimated GFR (MDRD) (>60) mL/min BUN/Creatinine Ratio (14-18) Glucose (80-115) mg/dL POC Glucose 127 H (80-115) mg/dL Calcium (8.5-10.1) mg/dL Phosphorus (2.6-4.7) mg/dL Magnesium (1.8-2.4) mg/dl Ur Random Creatinine (30.0-125.0) mg/dL U Random Total Protein (0.0-11.8) mg/dL Med Orders - Current: Current Medications Acetaminophen (Tylenol) 650 mg PO Q4H PRN PRN Reason: Pain (Mild 1-3)/fever Apixaban (Eliquis) 5 mg PO BID [facility] Last Admin: 11/23/19 08:20 Dose: 5 mg Documented by: Cyclobenzaprine HCl (Flexeril) 10 mg PO TID PRN PRN Reason: muscle spasms Last Admin: 11/22/19 20:16 Dose: 10 mg Documented by: Diltiazem HCl (Dilacor Xr) 240 mg PO BEDTIME SERVANDO Last Admin: 11/22/19 20:16 Dose: 240 mg Documented by: Furosemide (Lasix) 40 mg PO DAILY [facility] Furosemide (Lasix) 20 mg PO BEDTIME ONE Stop: 11/23/19 21:01 Insulin Human Lispro (Humalog) 0 unit SUBCUT QIDACANDBED [facility]; Protocol Last Admin: 11/23/19 17:12 Dose: Not Given Documented by: Lisinopril (Prinivil) 40 mg PO DAILY [facility] Last Admin: 11/23/19 11:33 Dose: 40 mg Documented by: Senna (Senna) 17.2 mg PO ONETIME ONE Stop: 11/23/19 21:01 Discontinued Medications Hydrocodone Bitart/Acetaminophen ([place] 325-5 Mg) 2 tab PO Q4H PRN PRN Reason: Pain (moderate 4-6) Last Admin: 11/23/19 02:36 Dose: 2 tab Documented by: Amlodipine Besylate (Norvasc) 10 mg PO DAILY [facility] Digoxin (Lanoxin) 250 mcg PO ONETIME ONE Stop: 11/21/19 21:01 Last Admin: 11/21/19 21:17 Dose: Not Given Documented by: Digoxin (Lanoxin) 250 mcg PO Q6H [facility] Stop: 11/22/19 15:01 Diltiazem HCl (Cardizem) 10 mg IVPUSH ONETIME ONE Stop: 11/21/19 07:32 Last Admin: 11/21/19 07:54 Dose: 10 mg Documented by: Diltiazem HCl (Cardizem) 60 mg PO Q6H [facility] Last Admin: 11/22/19 15:14 Dose: 60 mg Documented by: Furosemide (Lasix) 40 mg IVPUSH NOW ONE Stop: 11/21/19 07:32 Last Admin: 11/21/19 07:52 Dose: 40 mg Documented by: Furosemide (Lasix) 40 mg IVPUSH NOW ONE Stop: 11/22/19 09:03 Last Admin: 11/22/19 09:09 Dose: 40 mg Documented by: Furosemide (Lasix) 40 mg IVPUSH DAILY [facility] Last Admin: 11/23/19 08:28 Dose: 40 mg Documented by: Hydralazine HCl (Apresoline) 25 mg PO Q8H [facility] Last Admin: 11/23/19 05:23 Dose: 25 mg Documented by: Diltiazem HCl 100 mg/ Sodium (Chloride) 100 mls @ 10 mls/hr IV TITRATE [facility]; Protocol Last Titration: 11/21/19 17:01 Dose: 0 mg/hr, 0 mls/hr Documented by: Furosemide 100 mg/ Sodium (Chloride) 100 mls @ 5 mls/hr IV TITRATE SERVAND[facility]; Protocol Last Admin: 11/22/19 17:01 Dose: 5 mg/hr, 5 mls/hr Documented by: Magnesium Sulfate 4 gm/ Premix 50 mls @ 12.5 mls/hr IV ONETIME ONE Stop: 11/21/19 16:04 Last Admin: 11/21/19 12:43 Dose: 12.5 mls/hr Documented by: Isosorbide Dinitrate (Isordil) 20 mg PO Q8H [facility] Last Admin: 11/23/19 13:26 Dose: 20 mg Documented by: Lisinopril (Prinivil) 20 mg PO BID [facility] Metoprolol Succinate (Toprol Xl) 100 mg PO DAILY [facility] Last Admin: 11/23/19 08:21 Dose: 100 mg Documented by: Oxybutynin Chloride (Oxybutynin) 5 mg PO DAILY PRN PRN Reason: Dysuria Pantoprazole Sodium (Protonix) 40 mg PO DAILY [facility] Last Admin: 11/23/19 08:20 Dose: 40 mg Documented by: Potassium Chloride (Klor-Con 10) 30 meq PO DAILY [facility] Potassium Chloride (Klor-Con M20) 40 meq PO ONETIME ONE Stop: 11/22/19 08:11 Last Admin: 11/22/19 08:56 Dose: 40 meq Documented by: Spironolactone (Aldactone) 25 mg PO DAILY [facility] Last Admin: 11/23/19 08:21 Dose: 25 mg Documented by: - Exam Quality Assessment: Supplemental Oxygen, Urine Catheter General: Alert, Oriented HEENT: Pupils Equal, Mucous Membr. Moist/[place] Lungs: Clear to Auscultation, Normal Respiratory Effort Cardiovascular: Regular Rate, Regular Rhythm GI/Abdominal Exam: Normal Bowel Sounds, Soft, Non-Tender, No Organomegaly, No Distention, No Abnormal Bruit Skin: Warm, Dry, Intact Psy/Mental Status: Alert, Normal Affect, Normal Mood Sepsis Event Note - Evaluation Sepsis Screening Result: No Definite Risk - Focused Exam Vital Signs: Vital Signs Temp Resp BP BP Pulse Ox Pulse Ox 11/23/19 20:13 93 L 11/23/19 20:00 97.9 F 20 147/83 H 93 L 11/23/19 16:00 98.2 F 16 155/81 H 94 L 11/23/19 13:26 145/87 H 11/23/19 11:33 16 161/91 H 161/91 H 96 Date Exam was Performed: 11/23/19 Time Exam was Performed: 20:30 - Problem List Review Problem List Initiated/Reviewed/Updated: Yes - My Orders Last 24 Hours: My Active Orders 11/22/19 20:06 Cyclobenzaprine [Flexeril] 10 mg PO TID PRN 11/22/19 21:00 Diltiazem [Dilacor XR] 240 mg PO BEDTIME 11/23/19 06:00 Patient Status [ADT] Routine 11/23/19 11:30 Rivera Catheter Insertion [Insert Urinary Catheter] [OM.PC] Q24H - Plan Plan:: New onset atrial fibrillation * Shortness of breath starting yesterday with palpitation worsening today. * Found to be in atrial fibrillation in the emergency department * No associated chest pain * Home medications include metoprolol XL 150 mg in the morning. Patient did take his metoprolol this morning. * Switched from Cardizem drip to Cardizem IR 60 mg every 6 hours. HR well controlled * Patient has been in atrial fibrillation for unknown time but at least 24 hours and possibly up to 3 to 4 weeks or longer. Plan * Admit to ICU * Switched to Cardizem XR last PM with good results. Continue with metoprolol for rate control. * Continue Eliquis 5 mg twice daily for stroke prophylaxis. * Echocardiogram - pending New onset congestive heart failure due to hypertension and atrial fib * Patient has a 3-year history of lower extremity edema, but it improved significantly while taking a new diabetic medication. Unfortunately it made him ill and he stopped it approximately 3 to 4 weeks ago. At that time he started developing worsening lower extremity edema. * Patient is already on metoprolol XL 150 mg decreased to 100 mg on admission * Chest x-ray consistent with mild CHF * On Lasix drip to keep UOP >150 ml/h Plan * Continue Lasix drip * BiPAP * Continue spironolactone 25 mg daily * Hold lisinopril because of acute kidney injury * Start hydralazine and isosorbide dinitrate * Echocardiogram - pending * Strict I's and O's and daily weights * 1800 mL fluid restriction Type 2 diabetes Morbid obesity * On metformin at home * Hemoglobin A1c of 6.4 Plan * Fingerstick blood sugars before meals and nightly * Diabetic diet * Sliding scale insulin * Hold metformin VTE prophylaxis with Eliquis CODE STATUS: Full code Disposition: Admit to ICU for diuresis and rate control.
[2019-11-23] MEDS ORDERED: Furosemide Soln 10 MG/ML 60 ML Bottle PO SCH (21:00)
[2019-11-23] MEDS ORDERED: Sennosides 8.6 MG Tab PO ONE (21:00)
[2019-11-23] MEDS ORDERED: Furosemide 20 MG Tab PO ONE (21:00)
[2019-11-24] MEDS: Insulin Lispro 100 Units/ML 3 ML Vial SUBCUT SCH ×2 (06:38→12:29)
[2019-11-24 07:38] VITALS: BP 169/97
[2019-11-24] MEDS: Apixaban 5 MG Tab PO SCH (08:23)
[2019-11-24] MEDS: Lisinopril 20 MG Tab PO SCH (08:23)
[2019-11-24] MEDS ORDERED: Furosemide 40 MG Tab PO SCH (09:00)
--- NOTE | 2019-11-24 10:04 | PCM.DCSUM1 ---
Discharge Summary - Hospital Course HPI Initial Comments: 64-year-old male presents to the ED per [facility]. Patient states that he has felt fluttering in his chest off and on since yesterday around noon. This caused shortness of breath but no dizziness lightheadedness or weakness in his extremities. No central chest pain. He states this seemed to go away last evening but awoke this morning shortness of breath and feeling of palpitations. No history of atrial fibrillation. Triage nurse has performed an ECG which shows atrial fibrillation with rapid ventricular response up to 150/min. Patient has a dry cough not able to expectorate anything. He has a history of diabetes and hypertension. He is morbidly obese. Apparently on echo cardiogram showed that he had a leaky valve according to his . - Discharge Data Discharge Date: 11/24/19 Discharge Disposition: Home, Self-Care 01 Condition: Good - Referral to Home Health Primary Care Physician: Bib White Jr, MD - Discharge Diagnosis/Problem(s) (1) New onset atrial fibrillation SNOMED Code(s): 63206714 ICD Code: I48.91 - UNSPECIFIED ATRIAL FIBRILLATION Status: Acute Current Visit: Yes (2) Atrial fibrillation with controlled ventricular rate SNOMED Code(s): 56808139 ICD Code: I48.91 - UNSPECIFIED ATRIAL FIBRILLATION Status: Acute Current Visit: Yes (3) Atrial fibrillation with rapid ventricular response SNOMED Code(s): 993002931564786 ICD Code: I48.91 - UNSPECIFIED ATRIAL FIBRILLATION Status: Acute Current Visit: Yes (4) Pulmonary hypertension, moderate to severe SNOMED Code(s): 07319115 ICD Code: I27.20 - PULMONARY HYPERTENSION, UNSPECIFIED Status: Acute Current Visit: Yes (5) Obstructive sleep apnea SNOMED Code(s): 54615908 ICD Code: G47.33 - OBSTRUCTIVE SLEEP APNEA (ADULT) (PEDIATRIC) Status: Acute Current Visit: Yes (6) Hypertension SNOMED Code(s): 19765964 ICD Code: I10 - ESSENTIAL (PRIMARY) HYPERTENSION Status: Acute Current Visit: Yes (7) Diabetes mellitus SNOMED Code(s): 84495520 ICD Code: E11.9 - TYPE 2 DIABETES MELLITUS WITHOUT COMPLICATIONS Status: Acute Current Visit: Yes (8) Chronic kidney disease (CKD), stage III (moderate) SNOMED Code(s): 763589723 ICD Code: N18.3 - CHRONIC KIDNEY DISEASE, STAGE 3 (MODERATE) Status: Acute Current Visit: Yes (9) Morbid obesity with BMI of 40.0-44.9, adult SNOMED Code(s): 325427937, 63259612990385 ICD Code: E66.01 - MORBID (SEVERE) OBESITY DUE TO EXCESS CALORIES; Z68.41 - BODY MASS INDEX (BMI) 40.0-44.9, ADULT Status: Acute Current Visit: Yes (10) Hypokalemia SNOMED Code(s): 32029477 ICD Code: E87.6 - HYPOKALEMIA Status: Acute Current Visit: Yes - Patient Summary/Data Labs Pending at D/C: Anemia work-up Recommended Follow-up Testing/Procedures: Repeat echocardiogram performed by [facility] Sleep study Renal ultrasound Hospital Course: 11/20- - Shortness of breath starting yesterday with palpitation worsening today - Found to be in atrial fibrillation in the emergency department - No associated chest pain - Home medications include metoprolol XL 150 mg in the morning. Patient did take his metoprolol this morning. - Started on Cardizem drip with good results in the emergency department. - Patient does give history of worsening lower extremity edema over the last 3 weeks since stopping some a diabetic medication that was making him feel ill. - Patient has a 3-year history of lower extremity edema, but it improved significantly while taking a new diabetic medication. Unfortunately it made him ill and he stopped it approximately 3 to 4 weeks ago. - At that time he started developing worsening lower extremity edema. - Lasix drip, BiPAP, echocardiogram, fluid restriction - Admission weight 353.2lbs 11/23/2019 - HR trend 58-73x'--> on Diltiazem and Metoprolol - Rather than risks bradycardia will discontinue metoprolol - This medication was on for blood pressure control --> will adjust lisinopril - Echocardiogram 11/20 - RVSP severely elevated at 61.2 - Probable bicuspid aortic valve - Moderate aortic stenosis - Elevated right atrial pressure signs - MAP trend 97-111 - Admission weight 353.2lb down to 343.4 today - Glucose trend 114-133 - HbA1c is "controlled" however this is not reliable due to patient having anemia but glucose values here are within expected range - K low yesterday, replaced, borderline normal today at 3.5 - UA on admission with protein 2+ on dipstick, will obtain spot protein and creatinine ration to evaluate level of proteinuria - Last GFR on 2016 documented at 52 --> in the 30s this admission, this does not appear to be an acute but rather a chronic issue, however acute injury complicating the issue cannot be ruled out - Normocytic anemia, last labs on 2017 with Hb within normal limits - Will ask patient about signs and symptoms of GI bleed - Anemia work up today 11/23/2019 - Heart rate controlled and rhythm is sinus - Blood pressure controlled - Bowel movement today - Creatinine ratio and urine ordered and resulted with a 5 g proteinuria - Anemia work-up is pending - No complaints from patient - Discharge Plan *PRESCRIPTION DRUG MONITORING PROGRAM REVIEWED*: Not Applicable *COPY OF PRESCRIPTION DRUG MONITORING REPORT IN PATIENT HEATHER: Not Applicable Prescriptions/Med Rec: Diltiazem [Dilacor XR] 240 mg PO BEDTIME #30 cap.er Apixaban [Eliquis] 5 mg PO BID #60 tablet Furosemide [Lasix] 40 mg PO DAILY #30 tablet lisinopriL [Prinivil] 40 mg PO BEDTIME #60 tablet Home Medications: Home Meds Aspirin [Lo-Dose Aspirin EC] 81 mg PO DAILY 07/24/16 [History] Oxybutynin 5 mg PO DAILY PRN 11/21/19 [History] Potassium Chloride 30 meq PO DAILY 11/21/19 [History] metFORMIN [Glucophage] 500 mg PO TID 11/21/19 [History] Apixaban [Eliquis] 5 mg PO BID #60 tablet 11/24/19 [Rx] Diltiazem [Dilacor XR] 240 mg PO BEDTIME #30 cap.er 11/24/19 [Rx] Furosemide [Lasix] 40 mg PO DAILY #30 tablet 11/24/19 [Rx] lisinopriL [Prinivil] 40 mg PO BEDTIME #60 tablet 11/24/19 [Rx] Patient Handouts: Type 2 Diabetes Mellitus, Diagnosis, Adult, Heart Failure, Self Care, [id number] Forms: ED Department Discharge Referrals: Bib White Jr, MD [Primary Care Provider] - - Discharge Summary/Plan Comment DC Time >30 min.: Yes - General Info Date of Service: 11/24/19 Subjective Update: Feeling great Slept OK Tolerating diet Ambulating on his own BM today No complaints - Patient Data Vitals - Most Recent: Last Vital Signs Temp 97.7 F 11/24/19 07:36 Pulse 78 11/23/19 08:21 Resp 20 11/24/19 07:36 BP 169/97 H 11/24/19 08:23 Pulse Ox 95 11/24/19 07:36 Weight - Most Recent: 151.273 kg - Exam General: Reports: Alert, Oriented, Cooperative, No Acute Distress HEENT: Reports: Pupils Equal, Pupils Reactive, EOMI, Mucous Membr. Moist/[place] Neck: Reports: Supple, Trachea Midline, No JVD, No Thyromegaly Lungs: Reports: Clear to Auscultation, Normal Respiratory Effort. Denies: Crackles, Rales, Rhonchi, Rub, Stridor, Wheezing Cardiovascular: Reports: Regular Rate, Regular Rhythm. Denies: Murmurs, Gallops, Rubs GI/Abdominal Exam: Normal Bowel Sounds, Soft, Distended. No: Non-Tender, Guarding, Rigid, Rebound Back Exam: Reports: Normal Inspection. Denies: CVA Tenderness (L), CVA Tenderness (R) Extremities: Pedal Edema, Slow Capillary Refill Skin: Reports: Warm, Dry Neurological: Reports: No New Focal Deficit Psy/Mental Status: Reports: Alert, Normal Affect, Normal Mood
== END 2019-11-24 12:32 | disposition home or self-care (01) | DRG 291 ==
LOC: SUPCPDRO 07:02 → JD.ED 07:02 → JD.ICU 08:50
PROVIDERS: ADMIT Family Medicine; ATTEND Family Medicine
DX: I13.0 Hypertensive heart and chronic kidney disease with heart failure and stage 1 through stage 4 chronic kidney disease, or unspecified chronic kidney disease (principal); I11.0 Hypertensive heart disease with heart failure; I50.33 Acute on chronic diastolic (congestive) heart failure; Z68.41 Body mass index [BMI] 40.0-44.9, adult; Q23.1 Congenital insufficiency of aortic valve; G89.29 Other chronic pain; M54.9 Dorsalgia, unspecified; Z79.84 Long term (current) use of oral hypoglycemic drugs; I48.91 Unspecified atrial fibrillation; I27.20 Pulmonary hypertension, unspecified; G47.33 Obstructive sleep apnea (adult) (pediatric); N18.3 Chronic kidney disease, stage 3 (moderate); E66.01 Morbid (severe) obesity due to excess calories; I50.9 Heart failure, unspecified; E87.6 Hypokalemia; E78.00 Pure hypercholesterolemia, unspecified; K21.9 Gastro-esophageal reflux disease without esophagitis; E11.22 Type 2 diabetes mellitus with diabetic chronic kidney disease; D64.9 Anemia, unspecified; Z88.2 Allergy status to sulfonamides; Z88.8 Allergy status to other drugs, medicaments and biological substances; Z79.82 Long term (current) use of aspirin; Z79.899 Other long term (current) drug therapy
CPT/HCPCS: 36415; 51702; 71046; 80053; 82553; 83036; 83735; 83880; 84484; 85025; 85610; 85730; 86140; 93005; 96365; 96375; 96376; 99285; J1940; J3490 ×2; J7050; 80048; 81001; 82306; 82570; 82607; 82746; 82962; 83540; 83605; 84100; 84156; 84466; 85007; 85027; 85045; 93010; 93306; 94660; 97161-GP; 97165-GO; 99223; 99231; 99232; 99239; A9270-GY; J3475